=== PATIENT | female | born 1965 | race Caucasian/White ===

== ENCOUNTER 2021-12-31 07:41 | Day surgery (SDC) | payer MEDICAID ==
[2021-12-31] VITALS (11 sets, daily range): BP systolic 117–169; BP diastolic 59–93
[~2021-12-31] VITALS: Ht 167.6 cm; Wt 102.2 kg
[2021-12-31] MEDS ORDERED: diphenhydrAMINE 25mg capsule PO PRN (08:10)
[2021-12-31] MEDS ORDERED: normal saline 1,000 ML IV SCH (08:10)
[2021-12-31] MEDS ORDERED: LAMO100T2 PO (08:32)
[2021-12-31] MEDS ORDERED: RISP1TAB13 PO (08:32)
[2021-12-31] MEDS ORDERED: POTA8TAB69 PO (08:32)
[2021-12-31] MEDS ORDERED: HYDR-3972 PO (08:32)
[2021-12-31] MEDS ORDERED: PROM25TA14 PO (08:32)
[2021-12-31] MEDS ORDERED: GABA300C PO (08:32)
[2021-12-31] MEDS ORDERED: VENL37.55 PO (08:32)
[2021-12-31] MEDS ORDERED: SUMA100T PO (08:32)
[2021-12-31] MEDS ORDERED: LOSA50TA3 PO (08:32)
[2021-12-31] MEDS ORDERED: VITAMIN (08:42)
[2021-12-31] MEDS ORDERED: OMEP40CA21 PO (08:42)
[2021-12-31] MEDS ORDERED: albuterol (08:42)
[2021-12-31] MEDS ORDERED: ONDA4TAB12 PO (08:42)
[2021-12-31] MEDS ORDERED: MULT-1085 PO (08:42)
[2021-12-31] MEDS ORDERED: Vitamin B12 (08:42)
[2021-12-31] MEDS ORDERED: DOCU100C40 PO (08:42)
[2021-12-31] MEDS ORDERED: flovent (08:42)
[2021-12-31] MEDS ORDERED: MONT10TA21 PO (08:42)
[2021-12-31] MEDS ORDERED: DIPH-423 PO (08:42)
[2021-12-31] MEDS ORDERED: IPRA4AER IH (08:42)
[2021-12-31] MEDS ORDERED: DIPH-1055 PO (08:42)
[2021-12-31] MEDS ORDERED: TIZA4CAP6 PO (08:46)
[2021-12-31] MEDS ORDERED: CHOL50004 PO (08:48)
[2021-12-31 08:53] LABS: BASOPHILS % (AUTO) 0.5 % (0-1); EOSINOPHILS # (AUTO) 0.2 X10'3 (0-0.9); EOSINOPHILS % (AUTO) 2.4 % (0-6); HEMATOCRIT 35.7 % (35.0-45.0); HEMOGLOBIN 12.1 g/dl (12.0-16.0); LYMPHOCYTES # (AUTO) 1.5 X10'3 (1.1-4.8); LYMPHOCYTES % (AUTO) 23.7 % (21-51); MEAN CORPUSCULAR HEMOGLOBIN 31.1 PG (27.0-31.0); MEAN CORPUSCULAR HGB CONC 33.8 g/dL (33.0-36.5); MEAN PLATELET VOLUME 7.4 FL (7.4-10.4); MONOCYTES # (AUTO) 0.6 X10'3 (0-0.9); MONOCYTES % (AUTO) 8.9 % (2-12); NEUTROPHILS # (AUTO) 4.1 X10'3 (1.8-7.7); NEUTROPHILS % (AUTO) 64.5 % (42-75); PLATELET COUNT 349 X10'3 (140-440); RED BLOOD COUNT 3.88 X10'6 (4.20-5.60); RED CELL DISTRIBUTION WIDTH 15.3 % (11.5-14.5); WHITE BLOOD COUNT 6.4 X10'3 (4.5-11.0)
[2021-12-31 09:33] LABS: ALBUMIN 3.7 G/DL (3.4-5.0); BLOOD UREA NITROGEN 14 MG/DL (7-18); BUN/CREATININE RATIO 25.5 (6.6-38.0); CALCIUM 9.8 MG/DL (8.5-10.1); CREATININE 0.55 MG/DL (0.40-0.90); GLUCOSE 84 MG/DL (70-104); eGFR > 90 ML/MIN
[2021-12-31 09:41] LABS: ANION GAP 9 (8-16); CHLORIDE 108 MMOL/L (99-107); POTASSIUM 3.9 MMOL/L (3.5-5.1); SODIUM 141 MMOL/L (135-145); TOTAL CARBON DIOXIDE 24.4 MMOL/L (24-32)
[2021-12-31] MEDS ORDERED: nitroGLYCERIN-Tridil 50MG/D5W 250 ML IV ONE (10:11)
[2021-12-31] MEDS ORDERED: verapamil 2.5 mg/ml inj IV ONE (10:11)
[2021-12-31] MEDS ORDERED: LIDOCAINE 1% w/preservative (10 MG/ML) inj. 10mL VIAL ONE (10:11)
[2021-12-31] MEDS ORDERED: midazolam 1 mg/ML 2ml injection ONE ×2 (10:11→10:43)
[2021-12-31] MEDS ORDERED: fentaNYL/PF 50MCG/1 ML 2ML syringe ONE (10:12)
[2021-12-31] MEDS ORDERED: iohexol 350MG/ML 100ml bottle IV ONE (10:12)
[2021-12-31] MEDS ORDERED: iohexol 350 MG/ML 50ML vial IV ONE (10:12)
[2021-12-31] MEDS ORDERED: heparin 1,000unit/ml 10ml vial 10 ML ONE (10:12)
[2021-12-31] MEDS ORDERED: HYDROcodone/acetaminophen 5mg/325mg tablet PO PRN (11:50)
[2021-12-31] MEDS ORDERED: ondansetron/PF 4mg/2ml inj IV PRN (11:50)
[2021-12-31] MEDS ORDERED: proCHLORperazine 10 MG/2 ml inj IV PRN (11:50)
[2021-12-31] MEDS ORDERED: HYDROcodone/acetaminophen 10/325mg tab PO PRN (11:50)
[2021-12-31] MEDS ORDERED: normal saline 1000ml 1,000 ML IV SCH (11:50)
[2022-01-01] MEDS ORDERED: COVID-19 VAC, TRIS(PFIZER)/PF 30 MCG/0.3 ML VIAL IMVAC ONE (15:35)
== END 2021-12-31 16:03 | disposition home or self-care (01) ==
LOC: SSTAY O 07:41
PROVIDERS: ATTEND Internal Medicine Cardiovascular Disease
DX: R07.89 Other chest pain (principal); I20.8 Other forms of angina pectoris; J44.9 Chronic obstructive pulmonary disease, unspecified; I10 Essential (primary) hypertension; M48.00 Spinal stenosis, site unspecified; F31.30 Bipolar disorder, current episode depressed, mild or moderate severity, unspecified; Z98.84 Bariatric surgery status; Z98.890 Other specified postprocedural states; Z98.49 Cataract extraction status, unspecified eye; Z90.710 Acquired absence of both cervix and uterus; Z90.722 Acquired absence of ovaries, bilateral; Z87.891 Personal history of nicotine dependence; Z88.5 Allergy status to narcotic agent; Z88.2 Allergy status to sulfonamides; Z88.1 Allergy status to other antibiotic agents; Z79.899 Other long term (current) drug therapy; Z82.49 Family history of ischemic heart disease and other diseases of the circulatory system
CPT/HCPCS: 36415; 80048; 83735; 85025; 85610; 93005; 93458; 99152; C1769; C1894; J1644; J2250; J3010; J3490; J7030; Q0163; Q9967; 0001A; 91300; 99153; A4620; A5120

== ENCOUNTER 2025-04-11 15:53 | Outpatient (CLI) | payer MEDICAID ==
[~2025-04-11 15:53] MED LIST: CHOL50004 PO; DIPH-1212 PO; DIPH-423 PO; DOCU100C40 PO; GABA300C PO; HYDR-3972 PO; IPRA4AER IH; LAMO100T2 PO; LOSA-416 PO; MONT-48 PO; MULT-1085 PO; OMEP40CA21 PO; ONDA-243 PO; POTA8TAB69 PO; PROM25TA14 PO; RISP1TAB13 PO; SUMA100T PO; TIZA4CAP6 PO; VENL37.58 PO; Vitamin B12; albuterol; flovent
[2025-04-11 16:59] LABS: MEAN PLATELET VOLUME 8.3 FL (7.4-10.4); PRE OP HEMATOCRIT 36.2 % (35.0-45.0); PRE OP HEMOGLOBIN 11.9 g/dL (12.0-16.0); PRE OP PLATELET COUNT 349 X10'3 (140-440); PRE OP WHITE BLOOD COUNT 8.6 10'3 (4.8-10.8); RED CELL DISTRIBUTION WIDTH 13.4 % (11.5-14.5)
[2025-04-11 17:14] LABS: CREATININE 0.62 MG/DL (0.40-0.90); PRE OP ALT 31 U/L (30-65); PRE OP ANION GAP 8 (8-16); PRE OP AST 27 U/L (10-37); PRE OP BILIRUB, TOTAL 0.4 MG/DL (0.0-1.0); PRE OP GLUCOSE 90 MG/DL (70-104); PRE OP POTASSIUM 4.2 MMOL/L (3.4-5.1); PRE OP SODIUM 138 MMOL/L (135-145); TOTAL CARBON DIOXIDE 25.7 MMOL/L (24-32); eGFR > 90 ML/MIN
[2025-04-11] MEDS ORDERED: UBRO50TA PO (17:22)
[2025-04-11] MEDS ORDERED: AMLO5TAB16 PO (17:22)
[2025-04-11] MEDS ORDERED: NITR0.4T48 SL (17:22)
[2025-04-11] MEDS ORDERED: ATOR-2 PO (17:22)
[2025-04-11] MEDS ORDERED: ALBU8HFA INH (17:22)
[2025-04-11] MEDS ORDERED: METO-395 PO (17:22)
[2025-04-11] MEDS ORDERED: PREG50CA65 PO (17:22)
[2025-04-11] MEDS ORDERED: BUPR-726 PO (17:22)
[2025-04-11] MEDS ORDERED: AMIT25TA22 PO (17:22)
[2025-04-11] MEDS ORDERED: FURO-150 PO (17:22)
[2025-04-11] MEDS ORDERED: FLUT1BLS7 INH (17:22)
[2025-04-11] MEDS ORDERED: ASPI-1265 PO (17:22)
[2025-04-11] MEDS ORDERED: LIDO700A47 TOP (17:22)
[2025-04-11] MEDS ORDERED: FLUT250B INH (17:22)
[2025-04-11] MEDS ORDERED: CYAN10007 IM (17:22)
[2025-04-11] MEDS ORDERED: HYDR50TA4 PO (17:22)
[2025-04-11] MEDS ORDERED: POTA-188 PO (17:22)
[2025-04-11] MEDS ORDERED: DICL100G59 TOP (17:22)
[2025-04-11] MEDS ORDERED: CLOP75TA34 PO (17:22)
[2025-04-11] MEDS ORDERED: LORA-269 PO (17:22)
[2025-04-11] MEDS ORDERED: LIDO5CRE26 TOP (17:22)
[2025-04-11] MEDS ORDERED: BUSP10TA3 PO (17:22)
--- NOTE | 2025-04-11 17:28 | ELECTROCARDIOGRAPH REPORT ---
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 THU Blackman Measurements Intervals [place] Rate: 64 P: -10 [place]: 185 QRS: -6 QRSD: 104 T: 46 QT: 387 QTc: 400 Interpretive Statements Sinus rhythm Probable anteroseptal infarct, old Electronically Signed On 04-12-2025 9:23:[address] THU Blackman Please click the below link to view image of tracing.
== END 2025-04-11 23:59 | disposition home or self-care (01) ==
LOC: LAB 15:53 → EDSTATUS 04-19 15:00
PROVIDERS: ATTEND Orthopaedic Surgery
DX: Z01.818 Encounter for other preprocedural examination (principal); Z96.652 Presence of left artificial knee joint; M25.562 Pain in left knee; M17.12 Unilateral primary osteoarthritis, left knee
CPT/HCPCS: 36415; 80053; 85025; 93005